=== PATIENT | female | born 1980 | race Caucasian/White ===

== ENCOUNTER 2017-01-20 13:17 | Emergency (ER) | payer MEDICAID ==
[~2017-01-20] VITALS: Ht 157.5 cm; Wt 82.5 kg
[2017-01-20 13:21] VITALS: Ht 157.5 cm; Wt 82.5 kg
[2017-01-20 13:57] LABS: URINE BLOOD (Dip) POC 2+ (NEGATIVE)
[2017-01-20] MEDS ORDERED: IBUPROFEN 600 MG TAB PO ONE (14:00)
[2017-01-20] MEDS ORDERED: IBUP-1542 PO (14:06)
[2017-01-20] MEDS ORDERED: MECL-77 PO (14:06)
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
== END 2017-01-20 14:17 | disposition home or self-care (01) ==
LOC: FTE 13:17
DX: R51 Headache (principal)
CPT/HCPCS: 81003; 82962; Z7502; Z7610; 99283